=== PATIENT | female | born 1960 | race Two or more races ===

== ENCOUNTER 2024-03-23 07:59 | Outpatient (CLI) | payer OTHER ==
[~2024-03-23 07:59] MED LIST: SYNTHROID75 MCG PO
== END 2024-03-23 08:06 | disposition home or self-care (01) ==
LOC: SONOGRAMA 07:59
PROVIDERS: ATTEND Pathology Anatomic Pathology & Clinical Pathology
DX: D34 Benign neoplasm of thyroid gland (principal); E07.89 Other specified disorders of thyroid; E04.1 Nontoxic single thyroid nodule